=== PATIENT | male | born 1950 | race Caucasian/White ===

== ENCOUNTER 2019-03-24 12:55 | Outpatient (CLI) | payer MEDICARE, BC | END 2019-03-24 23:59 | disposition home or self-care (01) | LOC: RAD 12:55 | PROVIDERS: ATTEND Student in an Organized Health Care Education/Training Program | DX: C07 Malignant neoplasm of parotid gland (principal); R13.12 Dysphagia, oropharyngeal phase; Z85.89 Personal history of malignant neoplasm of other organs and systems; Z87.891 Personal history of nicotine dependence | CPT/HCPCS: 74230 ==